=== PATIENT | female | born 2000 | race African-American/Black ===

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

== ENCOUNTER 2020-05-23 21:57 | Inpatient (IN) ==
[2020-05-23] MEDS ORDERED: BUTORPHANOL 2 MG/ML VIAL IV PRN (22:09)
[2020-05-23] MEDS ORDERED: ONDANSETRON 4 MG/2 ML VIAL IV PRN (22:09)
[2020-05-23] MEDS: LACTATED RINGERS 1,000 ML IV SCH (22:38)
[2020-05-23 22:44] LABS: Basophils % 0.3 % (0.0-0.8); Eosinophils # 0.2 10*3/uL (0.0-0.87); Eosinophils % 2.6 % (0.00-10.9); Hemoglobin 9.4 GM/DL (12.0-16.0); Immature Granulocytes % 0.4 %; Immature Granulocytes Absolute 0.04 #; Lymphocytes # 2.1 10*3/uL (1.4-4.0); Lymphocytes % 23.8 % (21.3-54.2); Mean Corpuscular HGB Conc 31.3 GM/DL (32-36); Mean Corpuscular Volume 76.5 FL (87-102); Mean Platelet Volume 12.1 FL (9.6-12.0); Monocytes % 6.2 % (1.7-12.7); Neutrophils % 66.7 % (38.7-73.9); Platelet Count 225 T/CUMM (130-400); Red Blood Count 3.92 MC/CUMM (3.8-5.5); Red Cell Distribution Width 14.7 % (9.3-17.3)
[2020-05-23 23:37] LABS: Alanine Aminotransferase 10 U/L (13-56); Albumin 2.5 G/DL (3.4-5.0); Alkaline Phosphatase 166 U/L (45-117); Aspartate Amino Transferase 10 U/L (0-37); Bilirubin,Total < 0.39 MG/DL (0.2-1.0); Blood Urea Nitrogen 9 MG/DL (7-18); Calcium 8.6 MG/DL (8.5-10.1); Estimated Glom Filtration Rate 177 ML/MIN; Glucose 79 MG/DL (74-106); Osmolality,Calculated 274.5 MOS/KG (273-304); Total Protein 6.9 G/DL (6.4-8.3)
[2020-05-24] MEDS ORDERED: miSOPROStoL 100 MCG TABLET VAG ONE
[2020-05-24] MEDS: miSOPROStoL 100 MCG TABLET VAG SCH ×4 (04:03→17:58)
[2020-05-24] MEDS: MEPERIDINE 50 MG/1 ML VIAL IV PRN ×2 (10:41→14:30)
[2020-05-24] MEDS: LACTATED RINGERS 1,000 ML IV SCH ×2 (12:33→18:18)
[2020-05-24] MEDS ORDERED: NALOXONE 0.4 MG/ML VIAL IV PRN (16:19)
[2020-05-24] MEDS ORDERED: PROMETHAZINE 25 MG/1 ML VIAL IM ONE (16:19)
[2020-05-24] MEDS ORDERED: LACTATED RINGERS 1,000 ML IV ONE (16:19)
[2020-05-24] MEDS ORDERED: CITRIC ACID/SODIUM CITRATE 30 ML UDCUP PO ONE (16:19)
[2020-05-24] MEDS ORDERED: diphenhydrAMINE 50 MG/1 ML VIAL IV PRN ×2 (16:19)
[2020-05-24] MEDS ORDERED: ePHEDrine 50 MG/ML VIAL IV PRN (16:19)
[2020-05-24] MEDS ORDERED: FAMOTIDINE 20 MG/2 ML VIAL IV ONE (16:19)
[2020-05-24] MEDS ORDERED: ONDANSETRON 4 MG/2 ML VIAL IV ONE (16:19)
[2020-05-24] MEDS ORDERED: hydrOXYzine HCL 25 MG/1 ML VIAL IM PRN (16:19)
[2020-05-24] MEDS ORDERED: fentaNYL 2 MCG/ROPIV 0.2% EPID 100 ML EPIDURAL SCH (16:30)
[2020-05-24] MEDS ORDERED: OXYTOCIN/LR 20 UNIT/1,000 ML BAG IV SCH (16:30)
[2020-05-24] MEDS ORDERED: miSOPROStoL 200 MCG TABLET ONE (18:37)
[2020-05-24] MEDS ORDERED: OXYTOCIN/LR 20 UNIT/1,000 ML BAG IV ONE ×2 (18:37→19:03)
[2020-05-24] MEDS ORDERED: TRANEXAMIC ACID 1,000 MG/10 ML VIAL ONE (18:37)
[2020-05-24] MEDS ORDERED: CARBOPROST TROMETHAMINE 250 MCG/ML AMP IM ONE (18:38)
[2020-05-24] MEDS ORDERED: METHYLERGONOVINE 0.2 MG/1 ML AMP ONE (18:38)
[2020-05-24] MEDS ORDERED: ONDANSETRON 4 MG/2 ML VIAL IV PRN (19:03)
[2020-05-24] MEDS ORDERED: HYDROCORTISONE 2.5% RECTAL CREAM 30 GM TUBE TOP PRN (19:03)
[2020-05-24] MEDS ORDERED: LANOLIN 50% CREAM 0.3 OZ TUBE TOP PRN (19:03)
[2020-05-24] MEDS ORDERED: BISACODYL 10 MG SUPP RECTAL PRN (19:03)
[2020-05-24] MEDS ORDERED: MEASLES/MUMPS/RUBELLA VACCINE 0.5 ML VIAL SUBCUT ONE (19:03)
[2020-05-24] MEDS ORDERED: WITCH HAZEL PADS 100/JAR TOP PRN (19:03)
[2020-05-24] MEDS ORDERED: ACETAMINOPHEN 325 MG TABLET PO PRN (19:03)
[2020-05-24] MEDS ORDERED: BENZOCAINE 20%/MENTHOL 0.5% SPRAY 56 GM CAN TOP PRN (19:03)
[2020-05-24] MEDS ORDERED: oxyCODONE/ACETAMINOPHEN 5-325 MG TABLET PO PRN ×2 (19:03)
[2020-05-24] MEDS ORDERED: RHO(D) IMMUNE GLOBULIN 300 MCG SYRINGE IM ONE (19:03)
[2020-05-24] MEDS ORDERED: IBUPROFEN 800 MG TABLET PO PRN (19:03)
[2020-05-24] MEDS ORDERED: DIPH/TET/ACEL PERT BOOSTER VACCINE 0.5 ML VIAL IM ONE (19:03)
[2020-05-24 19:21] LABS: Cord Venous Blood HCO3 20.2 MMOL/L; Cord Venous Blood PCO2 42.7 MMHG; Cord Venous Blood PO2 31.8
[2020-05-25 06:21] LABS: Basophils % 0.2 % (0.0-0.8); Eosinophils # 0.2 10*3/uL (0.0-0.87); Eosinophils % 1.7 % (0.00-10.9); Hematocrit 28.4 VOL% (35.7-47.0); Hemoglobin 8.9 GM/DL (12.0-16.0); Immature Granulocytes % 0.6 %; Immature Granulocytes Absolute 0.06 #; Lymphocytes % 19.5 % (21.3-54.2); Mean Corpuscular HGB Conc 31.3 GM/DL (32-36); Mean Corpuscular Volume 75.9 FL (87-102); Mean Platelet Volume 12.3 FL (9.6-12.0); Monocytes % 5.5 % (1.7-12.7); Neutrophils % 72.5 % (38.7-73.9); Platelet Count 206 T/CUMM (130-400); Red Blood Count 3.74 MC/CUMM (3.8-5.5); Red Cell Distribution Width 14.7 % (9.3-17.3); White Blood Count 10.4 T/CUMM (4-12)
[2020-05-25] MEDS: DOCUSATE SODIUM 100 MG CAPSULE PO SCH ×3 (08:37→21:01)
[2020-05-25] MEDS ORDERED: RHO(D) IMMUNE GLOBULIN 300 MCG SYRINGE IM ONE (12:00)
[2020-05-26] MEDS: DOCUSATE SODIUM 100 MG CAPSULE PO SCH (08:09)
[2020-05-26 08:39] VITALS: BP 122/75
== END 2020-05-26 11:40 | disposition home or self-care (01) | DRG 807 ==
LOC: N.LD 21:57 → N.OB 05-25 00:45
PROVIDERS: ADMIT Specialist; ATTEND Specialist